=== PATIENT | male | born 1970 ===

== ENCOUNTER 2018-09-20 15:18 | Emergency (ER) | payer SELFPAY ==
[2018-09-20 15:19] VITALS: BMI 25.7
[2018-09-20 15:20] VITALS: RESP 18
--- NOTE | 2018-09-20 15:34 | ED PDOC ---
HPI: Psych/Substance Abuse Time Seen by Provider: 09/20/18 15:31 Chief Complaint (Nursing): Alcohol Ingestion History Per: EMS Onset/Duration Of Symptoms: Unknown Current Symptoms Are (Timing): Still Present Additional Complaint(s): Brought by EMS found sleeping on sidewalk. Denies injury. Past Medical History Reviewed: Unable To Obtain Vital Signs: Last Vital Signs Temp 97.6 F 09/20/18 15:19 Pulse 110 H 09/20/18 15:19 Resp 18 09/20/18 15:19 BP 128/90 09/20/18 15:19 Pulse Ox 99 09/20/18 15:19 - Family History Family History: States: Unknown Family Hx - Allergies Allergies/Adverse Reactions: Allergies Allergy/AdvReac Type Severity Reaction Status Date / Time No Known Allergies Allergy Verified 09/20/18 15:19 Review of Systems Review Of Systems: ROS cannot be obtained secondary to pt's inabilty to answer questions. Physical Exam - Reviewed Nursing Documentation Reviewed: Yes Vital Signs Reviewed: Yes - Physical Exam Appears: Positive for: Non-toxic, No Acute Distress Head Exam: Positive for: ATRAUMATIC, NORMAL INSPECTION, NORMOCEPHALIC Skin: Positive for: Normal Color, Warm, DRY Eye Exam: Positive for: EOMI, Normal appearance, PERRL ENT: Positive for: Normal ENT Inspection Neck: Positive for: Normal, Painless ROM Cardiovascular/Chest: Positive for: Regular Rate, Rhythm Respiratory: Positive for: CNT, Normal Breath Sounds Gastrointestinal/Abdominal: Positive for: Normal Exam, Soft Back: Positive for: Normal Inspection Extremity: Positive for: Normal ROM Neurologic/Psych: Positive for: Alert (Awake, responding to questions with incoherent monosyllables). Negative for: Motor/Sensory Deficits - ECG O2 Sat by Pulse Oximetry: 99 Disposition - Clinical Impression Clinical Impression: Alcohol abuse with alcohol-induced disorder - Patient ED Disposition Is Patient to be Admitted: Transfer of Care - Disposition Referrals: Alcoholics Anonymous [Outside] Disposition: Transfer of Care Disposition Time: 19:00 Condition: IMPROVED Additional Instructions: Seek professional help for alcohol abuse. Follow up with primary medical doctor. Instructions: Alcohol Use - When Is Drinking a Problem?, Alcohol Abuse and Alcoholism (DC) Forms: [employer] (Bulgarian) Print Language: [place] CITIZEN Patient Signed Over To: Jenifer Kerr (Pending sobriety)
--- NOTE | 2018-09-20 19:30 | ED PDOC ---
- ECG O2 Sat by Pulse Oximetry: 99 (RA) Pulse Ox Interpretation: Normal Medical Decision Making Medical Decision Makin Patient received by Dr. Laura, patient is here due to alcohol intoxication. He is transferred pending sobriety and discharge home. 00:00 Patient is resting comfortably in ED. He is easily arousable but quickly falls back asleep. Laceration on his head will be stapled pending sobriety. 04:45 Patient reevaluated. His physical exam is unremarkable. Pending laceration repair awaiting patient's complete sobriety and total alertness. No complaints given otherwise. Will be given referral for AA. Scribe Attestation: Documented by Carmelita Melendez, acting as a scribe for Jenifer Kerr MD. Provider Scribe Attestation: All medical record entries made by the Scribe were at my direction and personally dictated by me. I have reviewed the chart and agree that the record accurately reflects my personal performance of the history, physical exam, medic al decision making, and the department course for this patient. I have also personally directed, reviewed, and agree with the discharge instructions and disposition. Disposition - Clinical Impression Clinical Impression: Alcohol abuse with alcohol-induced disorder - POA Present On Arrival: None - Disposition Referrals: Alcoholics Anonymous [Outside] Disposition: Routine/Home Disposition Time: 04:50 Condition: IMPROVED Additional Instructions: Seek professional help for alcohol abuse. Follow up with primary medical doctor. Instructions: Alcohol Use - When Is Drinking a Problem?, Alcohol Abuse and Alcoholism (DC) Forms: [employer] (Hungarian) Print Language: KAZAKH
[2018-09-21 04:11] VITALS: BP 122/73; PULSE 88; TEMP 98.1
[2018-09-21 04:46] VITALS: O2SAT 99
== END 2018-09-21 03:03 | disposition home or self-care (01) ==
LOC: H.ER 15:18
DX: F10.10 Alcohol abuse, uncomplicated (principal)
CPT/HCPCS: 82948; 99285; G0480